=== PATIENT | female | born 1960 | race Caucasian/White ===

== ENCOUNTER 2017-11-04 13:46 | Emergency (ER) | payer BC ==
[2017-11-04 14:05] VITALS: BP 98/68
--- NOTE | 2017-11-04 14:50 | UC ---
General HPI - HPI Summary HPI Summary: 56 yo WF no pmhx c/o sudden fatigue x 3 days associated with DIFFUSE muscle aches and pains especially lower back, denies f/c/n/v/d. 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 and they have not been sick, just feels exhausted - History of Current Complaint Chief Complaint: UCGeneralIllness Stated Complaint: ACHES, AND FEVER Time Seen by Provider: 11/04/17 14:12 Hx Obtained From: Patient Onset/Duration: Lasting Days Timing: Constant Onset Severity: Moderate Current Severity: Severe Pain Intensity: 4 - Allergy/Home Medications Allergies/Adverse Reactions: Allergies Allergy/AdvReac Type Severity Reaction Status Date / Time No Known Allergies Allergy Verified 11/04/17 13:58 Home Medications: Home Medications Estrogen 1 tab SL BID 11/04/17 [History] Ibuprofen [Advil] 600 mg PO Q8HR PRN 11/04/17 [History Confirmed 11/04/17] Vitamin B Complex Vit C No.3 [B Complex with Vitamin C] 1 cap PO DAILY 11/04/17 [History Confirmed 11/04/17] PMH/Surg Hx/FS Hx/Imm Hx Previously Healthy: Yes - Surgical History Surgical History: Yes Surgery Procedure, Year, and Place: hysterectomy-2000 breast reduction-2011 - Social History Alcohol Use: Daily Substance Use Type: None Smoking Status (MU): Never Smoked Tobacco Review of Systems Constitutional: Fatigue Skin: Negative Eyes: Negative ENT: Negative Respiratory: Negative Cardiovascular: Negative Gastrointestinal: Negative Genitourinary: Negative Motor: Negative Neurovascular: Negative Musculoskeletal: Myalgia Neurological: Negative Psychological: Negative Is Patient Immunocompromised?: No All Other Systems Reviewed And Are Negative: Yes Physical Exam Triage Information Reviewed: Yes Appearance: Ill-Appearing Vital Signs: Initial Vital Signs Temp 37.6 C 11/04/17 14:00 Pulse 91 11/04/17 14:00 Resp 18 11/04/17 14:00 BP 98/68 11/04/17 14:00 Pulse Ox 98 11/04/17 14:00 Eye Exam: Normal ENT Exam: Normal Dental Exam: Normal Neck exam: Normal Neck: Positive: 1 Respiratory Exam: Normal Cardiovascular Exam: Normal Abdominal Exam: Normal Abdomen Description: Positive: Soft. Negative: CVA Tenderness (R), CVA Tenderness (L) Musculoskeletal: Positive: Other: - TTP lumbar paraspinal muscles Neurological Exam: Normal Psychological Exam: Normal Skin Exam: Normal Course/Dx - Course Course Of Treatment: UA with increased SG - 1.030, Cloudy urine color, dehydration vs occult ascending UTI so Ucx sent. Rapid flu and Rapid strep neg , EKG WNL Rapid flu and Rapid strep neg, EKG WNL CXR with Bibsilar R>L infiltrates, pt likely has walking PNA and/or CAP, Lavquin for broad coverage - Differential Dx - Multi-Symptom Provider Diagnoses: Pneumonia. Fatigue. Dehydration Discharge - Sign-Out/Discharge Documenting (check all that apply): Discharge/Admit/Transfer - Discharge Plan Condition: Stable Disposition: HOME Prescriptions: Levofloxacin TAB* [Levaquin TAB*] 750 mg PO DAILY 7 Days #7 tab Patient Education Materials: Community Acquired Pneumonia (ED) Referrals: Jolie Izaguirre MD [Primary Care Provider] - - Billing Disposition and Condition Condition: STABLE Disposition: HOME
--- NOTE | 2017-11-04 15:09 | RAD ---
INDICATION: Fatigue. COMPARISON: There are no prior studies available for comparison. TECHNIQUE: Dual-energy PA and lateral views of the chest were obtained. FINDINGS: The heart is within normal limits in size. Mediastinal and hilar contours appear within normal limits. The lungs are underinflated. There is a small infiltrate at the left lung base. No pleural effusion is seen. IMPRESSION: LOW LUNG VOLUMES, SMALL LEFT BASILAR INFILTRATE.
[2017-11-04 18:23] LABS: ABS Basophils 0.1 10^3/ul (0-0.2); ABS Eosinophils 0 10^3/ul (0-0.6); ABS Lymphocytes 1.9 10^3/ul (1.0-4.8); ABS Monocytes 0.4 10^3/ul (0-0.8); ABS Nucleated RBC 0 10^3/ul; Eosinophil % 0.6 % (0-6); Hematocrit 41 % (35-47); Hemoglobin 14.1 g/dl (12.0-16.0); Lymphocyte % 34.9 % (25-47); Mean Corpuscular HGB Conc 35 g/dl (31-36); Mean Corpuscular Hemoglobin 31 pg (27-31); Mean Corpuscular Volume 90 fL (80-97); Mean Platelet Volume 8.8 um3 (7.4-10.4); Nucleated Red Blood Cells % 0.2; Platelet Count 183 10^3/ul (150-450); Red Blood Count 4.52 10^6/ul (4.0-5.4); Red Cell Distribution Width 15 % (10.5-15); White Blood Count 5.3 10^3/ul (3.5-10.8)
[2017-11-04 18:45] LABS: EGFR Non-African American 84.6 (>60)
--- NOTE | 2017-11-08 07:31 | UC ---
- Progress Note Progress Note: Pt with neg lyme serology no change 11/08/17 [facility] Discharge - Sign-Out/Discharge Documenting (check all that apply): Post-Discharge Follow Up - Discharge Plan Condition: Stable Disposition: HOME Prescriptions: Levofloxacin TAB* [Levaquin TAB*] 750 mg PO DAILY 7 Days #7 tab Patient Education Materials: Community Acquired Pneumonia (ED) Referrals: Jolie Izaguirre MD [Primary Care Provider] - - Billing Disposition and Condition Condition: STABLE Disposition: HOME
== END 2017-11-04 15:27 | disposition home or self-care (01) ==
LOC: UCEAST 13:46
DX: J18.9 Pneumonia, unspecified organism (principal); R53.83 Other fatigue; E86.0 Dehydration
CPT/HCPCS: 36415; 71046; 80053; 81003; 84443; 85025; 86618; 87086; 87502; 87651; 93005; 99212; G0463